=== PATIENT | male | born 1995 | race Caucasian/White ===

== ENCOUNTER 2018-07-09 15:00 | Outpatient (RCR) | payer BC, MEDICAID, SELFPAY ==
--- NOTE | 2018-02-05 18:14 | HP.SP.PED ---
History - Diagnosis Diagnosis: autism. feeding aversion Q 21.1 - Medical Diagnoses: Autism - Social Lives with: Mother & Father Education: High School - History History: Patient has always had a limited diet however recently it has gotten even more limiting. He would eat [employer] graduate turkey and rice however that item is no longer available in the stores and now he refuses to eat any other type of protein. Subjective Feed/Dys - Parent Concerns Has the problem changed (gotten better or worse)?: Worse Comments: Patient has a limited diet of less than 15 foods. Objective Feed/Dys - Child Feeding Questionnaire What are the child's favorite foods?: soy milk, luxembourger fries, brand name(little fruits), gluten free pancakes, pretzels, fritoes. Patient was eating [employer] turkey and rice but it is no longer available in the stores. What foods/liquids appear to be more difficult for the child to eat?: Patient refuses all other foods except those listed above. Refuses oral feeding: Yes Comments: If patient is presented with non preferred food, patient will refuse to eat it. He has difficulty with it being on the same table. Other - Other observations -: During evaluation, mom had brought preferred food of fritoes and non preferred food of [employer] graduates of turkey rice and sweet potatoes. Patient initially gestured to therapist to put it back in the bag. Therapist was able to get him to allow the unopened container on the table close to his bowl of fritoes. When therpist attempted to open it, patient became very anxious and kept pointing to put it back in the bag. Plan - Plan Plan: The patient presents as a problem feeder as he presents an oral aversion to textures of. foods, which affects his ability to eat foods that provide the required nutritional. calories required for his age. - Prognosis Prognosis: Fair - Frequency Frequency: 1x/Week Duration: 4-6 Months - Patient/Family Goal Patient/Family Goal: To be able to eat a variety of food. - Goal #1-5 Goal #1: . Provide parent with education to increase variety of food and textures of food that. the patient will eat by introducing the hierarchy of steps to eating. Goal #2: The patient will increase tolerance to a variety of textures by following the. hierarchy of steps to eating. Education - Patient has Indicated that the Following Identified Educational Needs: Cognitively Impaired Other Educational Needs: parent interview as patient has cognitive impairment - Patient Instruction Patient Education: Goals, Home Exercise Program Person Taught: Family Teaching Method: Discussion Response to teaching: Verbalize understanding
--- NOTE | 2018-04-14 15:00 | DT_ITS ---
This patient was seen during an EMR downtime April 13, 2018 - April 20, 2018. This patient may have a combination of paper and electronic documentation or all paper documentation. All documentation is viewable within the e-chart portion of [facility] for each patient visit.
== END 2018-07-09 19:00 | disposition home or self-care (01) ==
LOC: SP 15:00
DX: Q21.1 Atrial septal defect (principal)
CPT/HCPCS: 92507; 92526; 92610

== ENCOUNTER 2019-02-04 14:30 | Outpatient (RCR) | payer BC, MEDICAID, SELFPAY ==
--- NOTE | 2018-09-24 16:53 | HP.SP.PEDR_ITS ---
Peds History Re-Eval - Visit Info Date of Eval: 02/05/18 Visit: 1 Patient's Approved Number of Visits: 30 Insurance Date Limit: 11/09/18 - History Attending Doctor: PADDY WHEELER - Re-Eval Date of Re-Evaluation: 09/22/18 - Diagnosis Diagnosis: autism feeding aversion Q21.1 - Additional Information Re-evaluation -: Patient was initially evaluated on 02/05/18 with diagnosis of feeding aversion Q21.1. Patient had a limited diet and had only been eating [place] [employer] turk ey and rice however that item had been discontinued and was no longer available. Previous/Current Goals - Goals 1-5 Previous Goal #1: Provide parent with education to increase variety of food and textures of food that. the patient will eat by introducing the hierarchy of steps to eating. Goal 1 Status: Therapist has provided patient's mother with information on the heirarchy feeding steps and she has observed therapy sessions and worked with patient at home. Previous Goal #2: he patient will increase tolerance to a variety of textures by following the. hierarchy of steps to eating. Goal 2 Status: Therapist used the Hierarchy steps to feeding and began to introduce [place] graduate chicken and rice and sweet potato. Therapist was able to develop a routine with patient and used books as a motivator. After patient completed requested task, he is allowed 2- 3 minutes to look at books. Patient is now eating [place] [employer] chicken and rice and sweet potatoes in all environments. Parents wanted patient to be able to eat more foods and requested chicken nuggets be tried. Patient was only able to get to placing a piece of chicken nugget in his mouth and then spitting it out. It was decided with parents that would switch to try and introduce vegetables. Patient?s mom brought in canned peas and carrots. Therapist followed the same hierarchy to steps to feeding and patient was able to progress through the steps quicker than when first introduced the program with the chicken and rice. Patient is currently able to eat the canned peas smashed. Patient requires to take a sip of water after each bit of peas. Will continue to work on mixing the canned peas with the carrots and getting him to eat the mixed foods/consistency. Plan - Plan Plan: Will continue to introduce new foods/textures using the heirarcy steps to feeding. - Prognosis Prognosis: Good - Frequency Visits in this POC: 30 - Patient/Family Goal Patient/Family Goal: To be able to eat a few more new foods. - Goal #1-5 Goal #1: Provide parent with education to increase variety of food and textures of food that. the patient will eat by introducing the hierarchy of steps to eating. Goal #2: he patient will increase tolerance to a variety of textures by following the. hierarchy of steps to eating.
== END 2019-02-04 19:00 | disposition home or self-care (01) ==
LOC: SP 14:30
PROVIDERS: Family Provider Internal Medicine; PCP Internal Medicine; Visit Provider Internal Medicine
DX: Q21.1 Atrial septal defect (principal)
CPT/HCPCS: 92507; 92526

== ENCOUNTER 2019-07-29 14:30 | Outpatient (RCR) | payer BC, MEDICAID, SELFPAY ==
--- NOTE | 2019-06-30 09:03 | PCM.BH.PN ---
Progress Note Progress Note: History of Present Illness/Interim History: The patient is a 23-year-old single male with a history of cerebral palsy and mild autism spectrum disorder who has been doing the [place] IOP program for the past 3 and half weeks. Today he states that his mood was improving over the past few weeks but as of the last few days his mood has again worsened. Anupam feels that this worsening in his mood is due to stress and frustration. He is extremely frustrated as he tries to transfer from [place] to [employer] for college. It is been so difficult that he now found out he may have to wait until next semester to start his classes. He is very upset and depressed about this. He states that he wants to make something out of his life and he feels that he does not know how much longer he can persist with all these obstacles in his way. In addition his mood is somewhat sad and down and lonely due to the fact that his younger brother who he gets along with and enjoys being with left for college yesterday. He misses his younger brother. He also states that he has not been sleeping well because his autistic brother who is shares a bedroom with wakes him up at 2 in the morning frequently. Due to his decreased sleep then Anupam uses some caffeine in the morning which makes him a little bit irritable. He is still stressed by living with his autistic brother. He does state that the IOP has been a bright spot for him and he enjoys coming here. He does feel supported and he feels this is helped his current mood. He describes frustration and feeling hopeless at times and trying to go back to college. He has fleeting passive suicidal thoughts and thoughts that he feels worthless but he says that he fights them off. He has no plan to commit suicide. He denies any homicidal ideation or hallucinations or delusions. [] Current Psychiatric Medications: [] Current psych meds are the same and include Luvox 200 mg p.o. daily, Vyvanse, and BuS[] Mental Status Examination: He is a 23-year-old male with a history of cerebral palsy who is wearing braces but is able to ambulate using his braces. He is casually dressed and groomed with good hygiene. He has mild psychomotor agitation and so far as he is extremely frustrated that he has been unable to achieve his goals. He has good hygiene and is casually dressed and groomed. He is alert and oriented to person place and time. He has fair to poor eye contact during this visit. He is cooperative however. Mood is depressed. Affect is full and indicates mild frustration and anger at his current situation. Thought processes goal-directed and organized. Thought content: Fleeting suicidal thoughts remain but no plan. No evidence of hot homicidal ideation. No evidence of hallucinations or delusions. Patient is just extremely frustrated that he wants to make something out of his life and he feels there are roadblocks concentration okay. Judgment intact. Impulsivity low to moderate. Insight some present. 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 He will continue to participate in the IOP program at [facility] as the structure, education, group and individual therapy and support have been helping him. Hopefully this will prevent him from worsening and requiring inpatient hospital admission. The risks, options, possible benefits and complications of his medication were discussed with him and he understands and accepts these. He will continue follow-up with his outpatient medical and psychiatric providers. If he does not feel safe at some time he will tells that the IOP or go to the emergency room.
== END 2019-07-29 19:00 | disposition home or self-care (01) ==
LOC: SP 14:30
PROVIDERS: Family Provider Internal Medicine; PCP Internal Medicine; Referring Provider Internal Medicine; Visit Provider Internal Medicine
DX: R13.11 Dysphagia, oral phase (principal); R84.0 Abnormal level of enzymes in specimens from respiratory organs and thorax
CPT/HCPCS: 92526

== ENCOUNTER 2020-01-06 14:30 | Outpatient (RCR) | payer BC, MEDICAID, SELFPAY ==
--- NOTE | 2020-01-06 15:20 | HP.SP.DC ---
ST Discharge Summary - Discharged: Discharge: Patient has met all of his objectives and parents are continuing to introduce new foods at home using a reward system. Patient has been discharged from speech therapy.
== END 2020-01-06 19:00 | disposition home or self-care (01) ==
LOC: SP 14:30
PROVIDERS: Family Provider Internal Medicine; PCP Internal Medicine; Referring Provider Internal Medicine; Visit Provider Internal Medicine
DX: R13.11 Dysphagia, oral phase (principal); F84.0 Autistic disorder
CPT/HCPCS: 92526